=== PATIENT | male | born 1955 | race Caucasian/White ===

== ENCOUNTER 2023-10-14 16:30 | Emergency (ER) | payer MEDICARE, MEDICAID ==
[2023-10-14 16:42] VITALS: BP 155/92; PULSE 88
[2023-10-14 17:03] LABS: BASOPHILS ABSOLUTE AUTO 0.03 10^3/uL (0.00-0.50); BASOPHILS PERCENT AUTO 0.4 % (0-1); EOSINOPHILS ABSOLUTE AUTO 0.32 10^3/uL (0.00-1.50); HEMATOCRIT 41.7 % (42.0-52.0); HEMOGLOBIN 12.5 g/dL (14.0-18.0); IMMATURE GRAN ABSOLUTE AUTO 0.01 10^3/uL (0.00-0.49); IMMATURE GRAN PERCENT AUTO 0.1 % (0.0-4.9); LYMPHOCYTES ABSOLUTE AUTO 1.05 10^3/uL (0.60-5.00); MEAN CORPUSCULAR HEMOGLOBIN 27.8 pg (27.0-32.0); MEAN CORPUSCULAR VOLUME 92.7 fL (83.0-97.0); MONOCYTES ABSOLUTE AUTO 0.68 10^3/uL (0.00-1.50); MONOCYTES PERCENT AUTO 8.4 % (0-10); NEUTROPHILS PERCENT AUTO 74.1 % (41-71); PLATELET COUNT,PLT 227 10^3/uL (150-400); WHITE BLOOD CELL COUNT,WBC 8.1 10^3/uL (4.0-11.0)
[2023-10-14 17:09] LABS: APPEARANCE,URINE CLEAR (CLEAR); BILIRUBIN,URINE NEGATIVE (NEGATIVE); COLOR,URINE YELLOW (YELLOW); GLUCOSE,URINE NEGATIVE (NEGATIVE); KETONES,URINE NEGATIVE (NEGATIVE); LEUKOCYTE ESTERASE,URINE NEGATIVE (NEGATIVE); NITRITE,URINE NEGATIVE (NEGATIVE); OCCULT BLOOD,URINE NEGATIVE (NEGATIVE); PH,URINE 6.5 (4.5-8.0); PROTEIN,URINE NEGATIVE (NEGATIVE)
[2023-10-14 17:28] LABS: ALBUMIN 2.8 g/dL (3.4-5.0); BILIRUBIN TOTAL 0.6 mg/dL (0.0-1.0); CALCIUM 9.2 mg/dL (8.4-10.1); CREATININE 0.7 mg/dL (0.7-1.3); EST CRCL DRUG DOSING (CG) 106.08 mL/min; MAGNESIUM 2.2 mg/dL (1.8-2.4); POTASSIUM,K 4.2 mEq/L (3.5-5.0); PROTEIN TOTAL,TP 7.4 g/dL (6.4-8.2)
== END 2023-10-14 20:57 | disposition home or self-care (01) ==
LOC: CC.ED 16:30
DX: R41.0 Disorientation, unspecified (principal); I11.0 Hypertensive heart disease with heart failure; I50.9 Heart failure, unspecified; E78.00 Pure hypercholesterolemia, unspecified; E66.9 Obesity, unspecified; Z68.43 Body mass index [BMI] 50.0-59.9, adult; Z20.822 Contact with and (suspected) exposure to COVID-19; Z79.899 Other long term (current) drug therapy; Z88.1 Allergy status to other antibiotic agents
CPT/HCPCS: 36415; 71045; 80053; 81003; 82800; 83735; 83880; 84484; 85025; 87804; 93005; 93010; 99284; 99285; U0002

== ENCOUNTER 2023-10-29 08:40 | Emergency (ER) | payer MEDICARE, MEDICAID ==
[2023-10-29] MEDS ORDERED: propofoL 100 ML ONE ×6 (08:49→13:47)
[2023-10-29] MEDS ORDERED: fentaNYL 50 MCG/ML SDV ONE ×3 (08:50→09:35)
[2023-10-29] MEDS ORDERED: Rocuronium 50 MG/5 ML Vial ONE (08:51)
[2023-10-29] MEDS ORDERED: Succinylcholine 200 MG/10 ML MDV ONE (08:51)
[2023-10-29] MEDS ORDERED: Etomidate 2 MG/ML 10 ML SDV IVPUSH ONE (09:05)
[2023-10-29] MEDS ORDERED: Succinylcholine 200 MG/10 ML MDV IV ONE (09:06)
[2023-10-29] MEDS ORDERED: fentaNYL 50 MCG/ML SDV IVPUSH ONE ×3 (09:08→09:50)
[2023-10-29] MEDS ORDERED: propofoL 100 ML IV SCH ×4 (09:10→13:30)
[2023-10-29] MEDS ORDERED: Propofol 200 MG/20 ML SDV IVPUSH ONE ×2 (09:16→09:30)
[2023-10-29] MEDS ORDERED: Norepinephrine Bit/D5W Premix 250 ML ONE (09:18)
[2023-10-29] MEDS ORDERED: Midazolam 1 MG/ML 2 ML SDV IVPUSH ONE (09:21)
[2023-10-29] MEDS ORDERED: Norepinephrine 4 MG in Dextrose 5% in Water 246 ML IV SCH ×2 (09:27)
[2023-10-29] MEDS ORDERED: ceFAZolin 2 GM Vial ONE (09:29)
[2023-10-29] MEDS ORDERED: Furosemide 100 MG/10 ML SDV ONE (09:45)
[2023-10-29] MEDS ORDERED: Sodium Chloride 0.9% 100 ML ONE (09:45)
[2023-10-29] MEDS ORDERED: Furosemide 40 MG/4 ML VIAL IVPUSH ONE (09:55)
[2023-10-29 09:56] LABS: BASOPHILS ABSOLUTE AUTO 0.01 10^3/uL (0.00-0.50); BASOPHILS PERCENT AUTO 0.1 % (0-1); EOSINOPHILS ABSOLUTE AUTO 0.01 10^3/uL (0.00-1.50); EOSINOPHILS PERCENT AUTO 0.1 % (0-6); HEMATOCRIT 39.6 % (42.0-52.0); HEMOGLOBIN 11.6 g/dL (14.0-18.0); IMMATURE GRAN ABSOLUTE AUTO 0.09 10^3/uL (0.00-0.49); LYMPHOCYTES ABSOLUTE AUTO 0.42 10^3/uL (0.60-5.00); LYMPHOCYTES PERCENT AUTO 4.6 % (24-44); MEAN CORPUSCULAR HEMOGLOBIN 28.4 pg (27.0-32.0); MEAN CORPUSCULAR HGB CONC 29.3 g/dL (32.0-36.0); MEAN CORPUSCULAR VOLUME 97.1 fL (83.0-97.0); MONOCYTES PERCENT AUTO 5.4 % (0-10); NEUTROPHILS ABSOLUTE AUTO 8.19 x10^3/uL (1.80-8.00); NEUTROPHILS PERCENT AUTO 88.8 % (41-71); PLATELET COUNT,PLT 189 10^3/uL (150-400); RED BLOOD CELL COUNT 4.08 x10^6/uL (4.50-6.00); WHITE BLOOD CELL COUNT,WBC 9.2 10^3/uL (4.0-11.0)
[2023-10-29] MEDS ORDERED: ceFAZolin 2 GM Vial IVPUSH ONE (09:56)
[2023-10-29 10:01] LABS: PH,ARTERIAL 7.39 (7.35-7.45)
[2023-10-29 10:02] LABS: BASE EXCESS ARTERIAL 20.4 (-2.0-3.0); BICARBONATE,ARTERIAL 45.3 mm/L (22.0-26.0); O2 SATURATION ARTERIAL 100 % (95-98); PCO2 ARTERIAL 75 mm/Hg0 (35-45); PO2 ARTERIAL 258 mm/Hg (80-100)
[2023-10-29 10:05] LABS: INR 1.08 (0.92-1.18); PROTHROMBIN TIME 11.1 SEC (9.3-11.3); PTT,PARTIAL THROMBOPLSTIN TIME 27.1 SEC (20.0-30.0)
[2023-10-29 10:08] LABS: O2 DELIVERY DEVICE T-PIECE
[2023-10-29 10:12] LABS: ALANINE AMINOTRANSFERASE,ALT 8 U/L (12-78); ALBUMIN 2.7 g/dL (3.4-5.0); ALKALINE PHOSPHATASE 105 U/L (46-116); ASPARTATE AMNIOTRANSFERASE,AST 13 U/L (15-37); BILIRUBIN TOTAL 0.8 mg/dL (0.0-1.0); BLOOD UREA NITROGEN,BUN 28 mg/dL (7-18); CALCIUM 9.1 mg/dL (8.4-10.1); CHLORIDE,CL 101 mEq/L (98-106); CREATINE KINASE,CK 25 U/L (35-232); CREATININE 0.7 mg/dL (0.7-1.3); GLUCOSE RANDOM 143 mg/dL (75-99); LACTATE DEHYDROGENASE,LDH 211 U/L (100-190); LIPASE 14 U/L (16-77); POTASSIUM,K 4.4 mEq/L (3.5-5.0); PRO B-TYPE NATRIUR PEPT,BNPPRO 2766 pg/mL (0-1000); PROTEIN TOTAL,TP 7.4 g/dL (6.4-8.2); SODIUM,NA 146 mEq/L (136-145)
[2023-10-29 10:14] LABS: CARBON DIOXIDE,CO2 45 mmol/L (21-32); ESTIMATED GFR 100 mL/min (>=60)
[2023-10-29] MEDS ORDERED: Midazolam 1 MG/ML 2 ML SDV ONE (10:26)
[2023-10-29 10:28] LABS: APPEARANCE,URINE CLEAR (CLEAR); BILIRUBIN,URINE NEGATIVE (NEGATIVE); COLOR,URINE YELLOW (YELLOW); GLUCOSE,URINE NEGATIVE (NEGATIVE); KETONES,URINE NEGATIVE (NEGATIVE); LEUKOCYTE ESTERASE,URINE NEGATIVE (NEGATIVE); NITRITE,URINE NEGATIVE (NEGATIVE); OCCULT BLOOD,URINE LARGE (NEGATIVE); PROTEIN,URINE 100 mg/dL (NEGATIVE); UROBILINOGEN,URINE 0.2 EU/dL (0.2-1.0)
[2023-10-29 10:30] LABS: BACTERIA,URINE OCCASIONAL /HPF (NOT SEEN); EPITHELIAL CELLS,URINE NOT SEEN /HPF (NOT SEEN); MUCUS,URINE OCCASIONAL /HPF (NOT SEEN); RBC,URINE 30-40 /HPF (0-5); WBC,URINE 0-5 /HPF (0-5)
[2023-10-29 10:35] VITALS: BP 125/77; PULSE 114
[2023-10-29 11:16] LABS: CORONAVIRUS COVID-19 NAA NEGATIVE (NEGATIVE); INFLUENZA A NAA NEGATIVE (NEGATIVE); INFLUENZA B NAA NEGATIVE (NEGATIVE); RESPIRATORY SYNCYTIAL VIR NAA NEGATIVE (NEGATIVE)
[2023-10-29] MEDS: propofoL 100 ML IV SCH ×2 (11:25→12:32)
[2023-10-29] MEDS: Midazolam 1 MG/ML 2 ML SDV IVPUSH ONE ×2 (11:31→15:23)
[2023-10-29 11:33] LABS: O2 DELIVERY DEVICE VENTILATOR
[2023-10-29 11:34] LABS: PCO2 ARTERIAL 61 mm/Hg0 (35-45); PH,ARTERIAL 7.48 (7.35-7.45)
[2023-10-29 11:35] LABS: BASE EXCESS ARTERIAL 21.8 (-2.0-3.0); BICARBONATE,ARTERIAL 45.3 mm/L (22.0-26.0); O2 SATURATION ARTERIAL 58 % (95-98); PO2 ARTERIAL 29 mm/Hg (80-100)
[2023-10-29 11:43] LABS: ALLEN TEST NO
[2023-10-29] MEDS ORDERED: fentaNYL 1,000 MCG in Sodium Chloride 0.9% 80 ML IV SCH (12:15)
== END 2023-10-29 13:45 ==
LOC: CC.ED 08:40
DX: J96.01 Acute respiratory failure with hypoxia (principal); I11.0 Hypertensive heart disease with heart failure; I50.9 Heart failure, unspecified; E78.00 Pure hypercholesterolemia, unspecified; E66.9 Obesity, unspecified; Z68.44 Body mass index [BMI] 60.0-69.9, adult; Z79.899 Other long term (current) drug therapy; Z88.8 Allergy status to other drugs, medicaments and biological substances; Z20.822 Contact with and (suspected) exposure to COVID-19
CPT/HCPCS: 0241U; 31500; 36415; 36556; 36600; 51702; 71045; 80053; 81001; 82550; 82803; 83605; 83615; 83690; 83880; 84484; 85025; 85610; 85730; 87040; 87077; 87186; 96365; 96366; 96367; 96368; 96375; 96376; 99291-25; 99292; J0330; J0690; J1940; J2250; J2704; J3010; J3490; J7060